=== PATIENT | female | born 1985 | race Caucasian/White ===

== ENCOUNTER 2023-12-29 21:04 | Emergency (ER) | payer BC ==
[~2023-12-29] VITALS: Ht 160 cm; Wt 72.6 kg
[2023-12-29 21:18] VITALS: BP 122/79; TEMP 98.6; O2SAT 98
== END 2023-12-29 22:51 | disposition home or self-care (01) ==
LOC: ER 21:07
DX: S60.032A Contusion of left middle finger without damage to nail, initial encounter (principal); S60.042A Contusion of left ring finger without damage to nail, initial encounter; S60.052A Contusion of left little finger without damage to nail, initial encounter; W10.1XXA Fall (on)(from) sidewalk curb, initial encounter; Y93.89 Activity, other specified; Y92.89 Other specified places as the place of occurrence of the external cause; Y99.8 Other external cause status
CPT/HCPCS: 73130-TC